=== PATIENT | male | born 1965 | race Caucasian/White ===

== ENCOUNTER → 2024-08-24 10:53 | Outpatient (REF) | payer BC, SELFPAY | LOC: HWRAD 10:53 | PROVIDERS: ATTENDING PHYSICIAN Student in an Organized Health Care Education/Training Program | DX: R10.31 Right lower quadrant pain (principal) | CPT/HCPCS: 76870; 76882; 93976 ==

== ENCOUNTER 2025-01-04 06:19 | Day surgery (SDC) | payer BC, SELFPAY ==
[2024-12-28 13:36] VITALS: BMI 26.0
[2025-01-04] VITALS (7 sets, daily range): BP systolic 107–151; BP diastolic 67–84; BMI 26.0
[2025-01-04] MEDS: NORMOSOL-R/PLASMALYTE-A 1000 IV (08:47)
[2025-01-04] MEDS: TYLENOL 1000 MG PO (08:47)
== END 2025-01-04 12:18 | disposition home or self-care (01) ==
LOC: SDS 06:19
PROVIDERS: ATTENDING PHYSICIAN Surgery
DX: K40.90 Unilateral inguinal hernia, without obstruction or gangrene, not specified as recurrent (principal)
CPT/HCPCS: 49650; C1781